=== PATIENT | male | born 1965 | race Asian ===

== ENCOUNTER 2019-06-01 08:10 | Day surgery (SDC) | payer OTHER ==
[2019-05-27 09:15] VITALS: BMI 35.2
[2019-06-01] MEDS ORDERED: PROPOFOL 20 ML ONE ×2 (09:08)
[2019-06-01] MEDS ORDERED: LIDOCAINE HCL/PF 2% SDV 5ML VIAL ONE (09:08)
[2019-06-01 10:14] VITALS: BP 120/78; PULSE 66; TEMP 98.4
--- NOTE | 2019-06-03 13:25 | PATH ---
Surgical Pathology Report Patient Name: ARTI SAL [facility]. Rec. #: [id number] /Age/Gender: 1965 (Age: 54) / M Account: [id number] Location: [facility] Taken: 06/01/2019 Received: 06/01/2019 Reported: 06/03/2019 Physicians: Umer Sarabia M.D. Specimen(s) Received POLYP SIGMOID COLON Clinical History History of polyps Postoperative diagnosis: Colon polyp, internal hemorrhoids Final Diagnosis SIGMOID COLON POLYP, POLYPECTOMY: TUBULAR ADENOMA. Electronically Signed Chelsea Burrell M.D. Gross Description Received in formalin, labeled "biopsy polyp sigmoid colon" is a reyes, irregular portion of soft tissue measuring 0.2 cm. in greatest dimension. The specimen is submitted in toto in one cassette. 06/02/201906/02/2019
== END 2019-06-01 10:14 | disposition home or self-care (01) ==
LOC: FASU-ENDO 08:10
PROVIDERS: ATTEND Internal Medicine Gastroenterology
PROC: 0DBM8ZX Excision of Descending Colon, Via Natural or Artificial Opening Endoscopic, Diagnostic (ICD-10-PCS; principal; 2019-06-01 09:28)
DX: Z86.010 Personal history of colon polyps (principal); D12.5 Benign neoplasm of sigmoid colon; K64.8 Other hemorrhoids
CPT/HCPCS: 88305-TC

== ENCOUNTER 2024-05-16 08:50 | Day surgery (SDC) | payer OTHER ==
[2024-05-12 09:09] VITALS: BMI 34.4
[2024-05-16 10:03] VITALS: PULSE 65; RESP 16; TEMP 97.5
[2024-05-16 10:21] VITALS: BP 117/76
== END 2024-05-16 10:25 | disposition home or self-care (01) ==
LOC: FASU-ENDO 08:50
PROVIDERS: ATTEND Internal Medicine Gastroenterology
PROC: 0DJD8ZZ Inspection of Lower Intestinal Tract, Via Natural or Artificial Opening Endoscopic (ICD-10-PCS; principal; 2024-05-16 09:35)
DX: Z12.11 Encounter for screening for malignant neoplasm of colon (principal)